=== PATIENT | male | born 1940 | race Caucasian/White ===

== ENCOUNTER 2019-02-17 16:02 | Inpatient (IN) ==
[2019-02-17] MEDS ORDERED: MAGNESIUM HYDROXIDE SUSP 30 ML UDCUP PO PRN (16:15)
[2019-02-17] MEDS ORDERED: GLUCAGON 1 MG VIAL IM PRN (16:15)
[2019-02-17] MEDS ORDERED: DEXTROSE 50% 25 GM/50 ML VIAL IV PRN (16:15)
[2019-02-17] MEDS ORDERED: ACETAMINOPHEN 325 MG TABLET PO PRN (16:15)
[2019-02-17] MEDS ORDERED: BISACODYL 5 MG TABLET PO PRN (16:15)
[2019-02-17] MEDS ORDERED: ONDANSETRON 4 MG/2 ML VIAL IV PRN (16:15)
[2019-02-17] MEDS: INSULIN REGULAR 100 UNIT/ML SUBCUT SCH ×2 (18:43→20:22)
[2019-02-17] MEDS: methylPREDNISolone SOD SUC 40 MG/1 ML VIAL IV SCH (19:20)
[2019-02-17] MEDS: SODIUM CHLORIDE 0.9% 1,000 ML IV SCH (19:22)
[2019-02-17 19:51] LABS: Basophils # 0.1 10*3/uL (0.0-0.2); Basophils % 0.9 % (0.0-0.8); Eosinophils # 0.4 10*3/uL (0.0-0.87); Eosinophils % 3.8 % (0.00-10.9); Hematocrit 40.4 VOL% (42.0-52.0); Hemoglobin 11.3 GM/DL (14.0-18.0); Immature Granulocytes % 0.4 %; Immature Granulocytes Absolute 0.04 #; Lymphocytes # 1.1 10*3/uL (1.4-4.0); Mean Corpuscular Volume 83.5 FL (87-102); Mean Platelet Volume 8.8 FL (9.6-12.0); Monocytes % 7.3 % (1.7-12.7); Neutrophils % 76.6 % (38.7-73.9); Platelet Count 385 T/CUMM (130-400); Red Blood Count 4.84 MC/CUMM (3.8-5.5); Red Cell Distribution Width 14.9 % (9.3-17.3); White Blood Count 10.2 T/CUMM (4-12)
[2019-02-17 19:52] LABS: Alanine Aminotransferase < 9 U/L (16-61); Albumin 3.3 G/DL (3.4-5.0); Alkaline Phosphatase 79 U/L (45-117); Aspartate Amino Transferase 13 U/L (0-37); Blood Urea Nitrogen 17 MG/DL (7-18); Calcium 8.3 MG/DL (8.5-10.1); Glucose 127 MG/DL (74-106); Osmolality,Calculated 280.5 MOS/KG (273-304); Total Protein 6.7 G/DL (6.4-8.3)
[2019-02-17 19:56] LABS: Anisocytosis 1+; Elliptocytes Few
[2019-02-17 19:57] LABS: Platelet Estimate Adequate; Polychromasia Few
[2019-02-17] MEDS: cefTRIAXone 500 MG in SYRINGE 1 EACH IV SCH (20:00)
[2019-02-17] MEDS: GABAPENTIN 300 MG CAPSULE PO SCH (20:22)
[2019-02-17] MEDS: DOCUSATE SODIUM 100 MG CAPSULE PO SCH (20:22)
[2019-02-17] MEDS: LIDOCAINE 5% PATCH TRANSDERM SCH (20:23)
[2019-02-17] MEDS: ALBUTEROL/IPRATROPIUM 3 ML NEB RESP TX SCH (20:26)
[2019-02-17] MEDS: BUDESONIDE 0.25 MG/2 ML NEB RESP TX SCH (20:26)
[2019-02-17] MEDS: TEMAZEPAM 7.5 MG CAPSULE PO SCH (20:38)
[2019-02-17] MEDS: ENOXAPARIN 40 MG/0.4 ML SYRINGE SUBCUT SCH (21:02)
[2019-02-17] MEDS ORDERED: DOCUSATE SODIUM 100 MG CAPSULE PO PRN (22:23)
[2019-02-17] MEDS ORDERED: KETOROLAC 15 MG/1 ML VIAL IV ONE (22:48)
[2019-02-18] MEDS: ALBUTEROL/IPRATROPIUM 3 ML NEB RESP TX SCH ×4 (01:22→19:05)
[2019-02-18 03:12] LABS: Apearance,Urine CLEAR (Clear); Bilirubin,Urine Negative (Negative); Blood, Urine Negative (Negative); Glucose,Urine (UA) 50 mg/dL (Negative); Hyaline Casts,Urine 3 /LPF (0-3); Ketones,Urine Negative (Negative); Mucus,Urine Few /LPF (Occasional); Nitrite,Urine Negative (Negative); Protein,Urine 30 MG/DL; RBC,Urine 4 /HPF (0-4); Squamous Epithelial Cell,Urine Occasional /HPF (0-10); Transitional Epi Cells,Urine Occasional /HPF (<1); Urine Color Yellow (Yellow); Urine Specific Gravity 1.023 (1.001-1.035); Urine Urobilinogen < 2.0 EU/DL (0.2-1.0); WBC,Urine 3 /HPF (0-6)
[2019-02-18 05:32] LABS: Calcium 8.1 MG/DL (8.5-10.1); Osmolality,Calculated 284.4 MOS/KG (273-304)
[2019-02-18] MEDS: methylPREDNISolone SOD SUC 40 MG/1 ML VIAL IV SCH ×2 (05:45→17:37)
[2019-02-18] MEDS: traMADol 50 MG TABLET PO PRN ×2 (05:45→22:23)
[2019-02-18 05:48] LABS: Basophils # 0.1 10*3/uL (0.0-0.2); Basophils % 0.6 % (0.0-0.8); Eosinophils % 0.2 % (0.00-10.9); Hematocrit 34.7 VOL% (42.0-52.0); Immature Granulocytes % 0.4 %; Immature Granulocytes Absolute 0.04 #; Lymphocytes # 0.6 10*3/uL (1.4-4.0); Lymphocytes % 6.6 % (21.2-54.2); Mean Corpuscular HGB Conc 28.8 GM/DL (32-36); Mean Corpuscular Volume 82.2 FL (87-102); Mean Platelet Volume 9.7 FL (9.6-12.0); Monocytes % 4.8 % (1.7-12.7); Neutrophils % 87.4 % (38.7-73.9); Platelet Count 318 T/CUMM (130-400); Red Blood Count 4.22 MC/CUMM (3.8-5.5); White Blood Count 9.4 T/CUMM (4-12)
[2019-02-18 05:53] LABS: Platelet Estimate Normal; Polychromasia Slight
[2019-02-18] MEDS: BUDESONIDE 0.25 MG/2 ML NEB RESP TX SCH ×2 (07:42→19:05)
[2019-02-18] MEDS ORDERED: predniSONE 10 MG TABLET PO SCH (09:00)
[2019-02-18] MEDS: INSULIN REGULAR 100 UNIT/ML SUBCUT SCH ×4 (10:29→22:23)
[2019-02-18] MEDS: ALLOPURINOL 300 MG TABLET PO SCH (10:30)
[2019-02-18] MEDS: CARBIDOPA/LEVODOPA 25-100 MG TABLET PO SCH ×3 (10:30→21:21)
[2019-02-18] MEDS: FUROSEMIDE 20 MG TABLET PO SCH (10:30)
[2019-02-18] MEDS: DOCUSATE SODIUM 100 MG CAPSULE PO SCH ×2 (10:30→21:21)
[2019-02-18] MEDS: metFORMIN 500 MG TABLET PO SCH ×2 (10:30→16:34)
[2019-02-18] MEDS: CETIRIZINE 10 MG TABLET PO SCH (10:31)
[2019-02-18] MEDS: PANTOPRAZOLE 40 MG TABLET PO SCH (10:31)
[2019-02-18] MEDS: amLODIPine 5 MG TABLET PO SCH (10:31)
[2019-02-18] MEDS: ROFLUMILAST 500 MCG TABLET PO SCH (10:31)
[2019-02-18] MEDS: MONTELUKAST 10 MG TABLET PO SCH (10:31)
[2019-02-18] MEDS: ASPIRIN EC 81 MG TABLET PO SCH (10:31)
[2019-02-18] MEDS: LIDOCAINE 5% PATCH TRANSDERM SCH (11:09)
[2019-02-18] MEDS: ACLIDINIUM INH SCH ×2 (16:35→22:22)
[2019-02-18] MEDS: cefTRIAXone 500 MG in SYRINGE 1 EACH IV SCH (17:37)
[2019-02-18] MEDS: GABAPENTIN 300 MG CAPSULE PO SCH (21:21)
[2019-02-18] MEDS: ROSUVASTATIN 10 MG TABLET PO SCH (21:21)
[2019-02-18] MEDS: ENOXAPARIN 40 MG/0.4 ML SYRINGE SUBCUT SCH (22:23)
[2019-02-18] MEDS: TEMAZEPAM 7.5 MG CAPSULE PO SCH (22:27)
[2019-02-18] MEDS: SODIUM CHLORIDE 0.9% 1,000 ML IV SCH ×2 (22:27→22:33)
[2019-02-19] MEDS: ALBUTEROL/IPRATROPIUM 3 ML NEB RESP TX SCH ×4 (00:43→19:47)
[2019-02-19] MEDS: methylPREDNISolone SOD SUC 40 MG/1 ML VIAL IV SCH ×2 (05:41→17:43)
[2019-02-19 06:03] LABS: Basophils % 0.3 % (0.0-0.8); Eosinophils % 0.1 % (0.00-10.9); Hematocrit 38.1 VOL% (42.0-52.0); Immature Granulocytes % 0.8 %; Immature Granulocytes Absolute 0.09 #; Lymphocytes # 0.7 10*3/uL (1.4-4.0); Lymphocytes % 6.2 % (21.2-54.2); Mean Corpuscular HGB Conc 28.1 GM/DL (32-36); Mean Corpuscular Volume 83.4 FL (87-102); Mean Platelet Volume 9.2 FL (9.6-12.0); Monocytes % 5.1 % (1.7-12.7); Neutrophils % 87.5 % (38.7-73.9); Platelet Count 379 T/CUMM (130-400); Red Blood Count 4.57 MC/CUMM (3.8-5.5); White Blood Count 11.2 T/CUMM (4-12)
[2019-02-19 06:15] LABS: Calcium 8.2 MG/DL (8.5-10.1); Osmolality,Calculated 287.3 MOS/KG (273-304)
[2019-02-19 06:28] LABS: Hemoglobin 10.7 GM/DL (14.0-18.0)
[2019-02-19 06:36] LABS: Burr Cells Slight; Hypochromasia Slight; Ovalocytes Slight; Platelet Estimate Adequate
[2019-02-19] MEDS: BUDESONIDE 0.25 MG/2 ML NEB RESP TX SCH ×2 (07:56→19:47)
[2019-02-19] MEDS: MONTELUKAST 10 MG TABLET PO SCH (09:20)
[2019-02-19] MEDS: INSULIN REGULAR 100 UNIT/ML SUBCUT SCH ×4 (09:20→21:10)
[2019-02-19] MEDS: DOCUSATE SODIUM 100 MG CAPSULE PO SCH ×2 (09:21→21:12)
[2019-02-19] MEDS: ROFLUMILAST 500 MCG TABLET PO SCH (09:21)
[2019-02-19] MEDS: metFORMIN 500 MG TABLET PO SCH ×2 (09:21→16:46)
[2019-02-19] MEDS: amLODIPine 5 MG TABLET PO SCH (09:21)
[2019-02-19] MEDS: CETIRIZINE 10 MG TABLET PO SCH (09:21)
[2019-02-19] MEDS: ALLOPURINOL 300 MG TABLET PO SCH (09:21)
[2019-02-19] MEDS: FUROSEMIDE 20 MG TABLET PO SCH (09:21)
[2019-02-19] MEDS: ASPIRIN EC 81 MG TABLET PO SCH (09:21)
[2019-02-19] MEDS: PANTOPRAZOLE 40 MG TABLET PO SCH (09:21)
[2019-02-19] MEDS: CARBIDOPA/LEVODOPA 25-100 MG TABLET PO SCH ×3 (09:21→21:12)
[2019-02-19] MEDS: LIDOCAINE 5% PATCH TRANSDERM SCH (09:22)
[2019-02-19] MEDS: ACLIDINIUM INH SCH ×2 (09:24→21:10)
[2019-02-19] MEDS: SODIUM CHLORIDE 0.9% 1,000 ML IV SCH (11:36)
[2019-02-19] MEDS: cefTRIAXone 500 MG in SYRINGE 1 EACH IV SCH (17:44)
[2019-02-19] MEDS: ENOXAPARIN 40 MG/0.4 ML SYRINGE SUBCUT SCH (21:12)
[2019-02-19] MEDS: ROSUVASTATIN 10 MG TABLET PO SCH (21:12)
[2019-02-19] MEDS: GABAPENTIN 300 MG CAPSULE PO SCH (21:12)
[2019-02-19] MEDS: TEMAZEPAM 7.5 MG CAPSULE PO SCH (23:44)
[2019-02-20] MEDS: ALBUTEROL/IPRATROPIUM 3 ML NEB RESP TX SCH ×4 (00:36→20:02)
[2019-02-20 04:57] LABS: Calcium 8.3 MG/DL (8.5-10.1); Osmolality,Calculated 284.4 MOS/KG (273-304)
[2019-02-20] MEDS: methylPREDNISolone SOD SUC 40 MG/1 ML VIAL IV SCH ×2 (06:09→17:38)
[2019-02-20] MEDS: BUDESONIDE 0.25 MG/2 ML NEB RESP TX SCH ×2 (08:13→20:03)
[2019-02-20] MEDS: INSULIN REGULAR 100 UNIT/ML SUBCUT SCH ×4 (09:00→20:45)
[2019-02-20] MEDS: ALLOPURINOL 300 MG TABLET PO SCH (09:43)
[2019-02-20] MEDS: CETIRIZINE 10 MG TABLET PO SCH (09:43)
[2019-02-20] MEDS: metFORMIN 500 MG TABLET PO SCH ×2 (09:44→16:59)
[2019-02-20] MEDS: MONTELUKAST 10 MG TABLET PO SCH (09:44)
[2019-02-20] MEDS: CARBIDOPA/LEVODOPA 25-100 MG TABLET PO SCH ×3 (09:44→20:39)
[2019-02-20] MEDS: LIDOCAINE 5% PATCH TRANSDERM SCH (09:44)
[2019-02-20] MEDS: DOCUSATE SODIUM 100 MG CAPSULE PO SCH ×2 (09:44→20:39)
[2019-02-20] MEDS: ASPIRIN EC 81 MG TABLET PO SCH (09:44)
[2019-02-20] MEDS: ROFLUMILAST 500 MCG TABLET PO SCH (09:44)
[2019-02-20] MEDS: FUROSEMIDE 20 MG TABLET PO SCH (09:44)
[2019-02-20] MEDS: PANTOPRAZOLE 40 MG TABLET PO SCH (09:44)
[2019-02-20] MEDS: ACLIDINIUM INH SCH ×2 (09:45→20:45)
[2019-02-20] MEDS: amLODIPine 5 MG TABLET PO SCH (09:50)
[2019-02-20] MEDS: SODIUM CHLORIDE 0.9% 1,000 ML IV SCH ×2 (13:29)
[2019-02-20] MEDS: cefTRIAXone 500 MG in SYRINGE 1 EACH IV SCH (17:01)
[2019-02-20] MEDS: ROSUVASTATIN 10 MG TABLET PO SCH (20:39)
[2019-02-20] MEDS: ENOXAPARIN 40 MG/0.4 ML SYRINGE SUBCUT SCH (20:39)
[2019-02-20] MEDS: GABAPENTIN 300 MG CAPSULE PO SCH (20:39)
[2019-02-20] MEDS: TEMAZEPAM 7.5 MG CAPSULE PO SCH (20:56)
[2019-02-21] MEDS: ALBUTEROL/IPRATROPIUM 3 ML NEB RESP TX SCH ×4 (00:56→19:52)
[2019-02-21] MEDS: SODIUM CHLORIDE 0.9% 1,000 ML IV SCH ×2 (02:49→16:23)
[2019-02-21] MEDS: methylPREDNISolone SOD SUC 40 MG/1 ML VIAL IV SCH ×2 (05:55→18:00)
[2019-02-21 05:59] LABS: Calcium 8.4 MG/DL (8.5-10.1); Osmolality,Calculated 283.4 MOS/KG (273-304)
[2019-02-21] MEDS: BUDESONIDE 0.25 MG/2 ML NEB RESP TX SCH ×2 (07:51→19:52)
[2019-02-21] MEDS: ROFLUMILAST 500 MCG TABLET PO SCH (09:07)
[2019-02-21] MEDS: ASPIRIN EC 81 MG TABLET PO SCH (09:07)
[2019-02-21] MEDS: FUROSEMIDE 20 MG TABLET PO SCH (09:07)
[2019-02-21] MEDS: MONTELUKAST 10 MG TABLET PO SCH (09:07)
[2019-02-21] MEDS: amLODIPine 5 MG TABLET PO SCH (09:07)
[2019-02-21] MEDS: CARBIDOPA/LEVODOPA 25-100 MG TABLET PO SCH ×3 (09:07→20:56)
[2019-02-21] MEDS: ALLOPURINOL 300 MG TABLET PO SCH (09:07)
[2019-02-21] MEDS: DOCUSATE SODIUM 100 MG CAPSULE PO SCH ×2 (09:07→20:56)
[2019-02-21] MEDS: metFORMIN 500 MG TABLET PO SCH ×2 (09:07→16:23)
[2019-02-21] MEDS: PANTOPRAZOLE 40 MG TABLET PO SCH (09:08)
[2019-02-21] MEDS: CETIRIZINE 10 MG TABLET PO SCH (09:08)
[2019-02-21] MEDS: LIDOCAINE 5% PATCH TRANSDERM SCH (09:08)
[2019-02-21] MEDS: INSULIN REGULAR 100 UNIT/ML SUBCUT SCH ×4 (09:09→21:00)
[2019-02-21] MEDS: ACLIDINIUM INH SCH ×2 (09:09→21:00)
[2019-02-21] MEDS: cefTRIAXone 500 MG in SYRINGE 1 EACH IV SCH (17:48)
[2019-02-21] MEDS: GABAPENTIN 300 MG CAPSULE PO SCH (20:55)
[2019-02-21] MEDS: ROSUVASTATIN 10 MG TABLET PO SCH (20:55)
[2019-02-21] MEDS: TEMAZEPAM 7.5 MG CAPSULE PO SCH (21:01)
[2019-02-21] MEDS: ENOXAPARIN 40 MG/0.4 ML SYRINGE SUBCUT SCH (21:01)
[2019-02-22] MEDS: ALBUTEROL/IPRATROPIUM 3 ML NEB RESP TX SCH ×4 (00:55→19:16)
[2019-02-22] MEDS: SODIUM CHLORIDE 0.9% 1,000 ML IV SCH ×2 (02:55→15:40)
[2019-02-22] MEDS: methylPREDNISolone SOD SUC 40 MG/1 ML VIAL IV SCH ×2 (05:41→20:10)
[2019-02-22] MEDS: INSULIN REGULAR 100 UNIT/ML SUBCUT SCH ×4 (07:30→22:08)
[2019-02-22] MEDS: BUDESONIDE 0.25 MG/2 ML NEB RESP TX SCH ×2 (07:32→09:41)
[2019-02-22] MEDS: CETIRIZINE 10 MG TABLET PO SCH (08:58)
[2019-02-22] MEDS: FUROSEMIDE 20 MG TABLET PO SCH (08:58)
[2019-02-22] MEDS: ALLOPURINOL 300 MG TABLET PO SCH (08:58)
[2019-02-22] MEDS: metFORMIN 500 MG TABLET PO SCH ×2 (08:58→17:04)
[2019-02-22] MEDS: ROFLUMILAST 500 MCG TABLET PO SCH (08:59)
[2019-02-22] MEDS: DOCUSATE SODIUM 100 MG CAPSULE PO SCH ×2 (08:59→22:07)
[2019-02-22] MEDS: MONTELUKAST 10 MG TABLET PO SCH (08:59)
[2019-02-22] MEDS: PANTOPRAZOLE 40 MG TABLET PO SCH (08:59)
[2019-02-22] MEDS: amLODIPine 5 MG TABLET PO SCH (08:59)
[2019-02-22] MEDS: CARBIDOPA/LEVODOPA 25-100 MG TABLET PO SCH ×3 (09:00→22:07)
[2019-02-22] MEDS: ASPIRIN EC 81 MG TABLET PO SCH (09:00)
[2019-02-22] MEDS: LIDOCAINE 5% PATCH TRANSDERM SCH (09:30)
[2019-02-22] MEDS: ACLIDINIUM INH SCH ×2 (09:41→22:11)
[2019-02-22] MEDS ORDERED: methylPREDNISolone ACETATE 80 MG/1 ML VIAL IM ONE (17:30)
[2019-02-22] MEDS: cefTRIAXone 500 MG in SYRINGE 1 EACH IV SCH ×2 (22:03→22:50)
[2019-02-22] MEDS: GABAPENTIN 300 MG CAPSULE PO SCH (22:07)
[2019-02-22] MEDS: TEMAZEPAM 7.5 MG CAPSULE PO SCH (22:07)
[2019-02-22] MEDS: ROSUVASTATIN 10 MG TABLET PO SCH (22:07)
[2019-02-22] MEDS: ENOXAPARIN 40 MG/0.4 ML SYRINGE SUBCUT SCH ×2 (22:08→22:13)
[2019-02-23] MEDS: ALBUTEROL/IPRATROPIUM 3 ML NEB RESP TX SCH ×4 (00:34→19:57)
[2019-02-23] MEDS ORDERED: methylPREDNISolone SOD SUC 40 MG/1 ML VIAL IV SCH (04:00)
[2019-02-23] MEDS: methylPREDNISolone SOD SUC 40 MG/1 ML VIAL IV SCH (04:16)
[2019-02-23 05:50] LABS: Alanine Aminotransferase < 6 U/L (16-61); Alkaline Phosphatase 79 U/L (45-117); Aspartate Amino Transferase 11 U/L (0-37); Blood Urea Nitrogen 34 MG/DL (7-18); Glucose 156 MG/DL (74-106); Osmolality,Calculated 283.8 MOS/KG (273-304)
[2019-02-23 05:56] LABS: Basophils # 0.1 10*3/uL (0.0-0.2); Basophils % 0.5 % (0.0-0.8); Eosinophils # 0.1 10*3/uL (0.0-0.87); Eosinophils % 0.7 % (0.00-10.9); Hematocrit 38.4 VOL% (42.0-52.0); Hemoglobin 11.2 GM/DL (14.0-18.0); Immature Granulocytes % 1.6 %; Immature Granulocytes Absolute 0.21 #; Lymphocytes # 0.5 10*3/uL (1.4-4.0); Lymphocytes % 3.7 % (21.2-54.2); Mean Corpuscular HGB Conc 29.2 GM/DL (32-36); Mean Corpuscular Volume 81.7 FL (87-102); Mean Platelet Volume 9.3 FL (9.6-12.0); Monocytes % 2.3 % (1.7-12.7); Neutrophils % 91.2 % (38.7-73.9); Platelet Count 370 T/CUMM (130-400); Red Cell Distribution Width 15.7 % (9.3-17.3); White Blood Count 12.8 T/CUMM (4-12)
[2019-02-23 06:20] LABS: Anisocytosis Slight; Eosinophils 2 % (0-10); Lymphocytes 4 % (20-55); Microcytosis 1+; Segmented Neutrophils 92 % (50-85); Total Cells Counted 100
[2019-02-23 06:21] LABS: Ovalocytes Slight; Platelet Estimate Normal
[2019-02-23] MEDS: BUDESONIDE 0.25 MG/2 ML NEB RESP TX SCH ×2 (07:22→19:57)
[2019-02-23] MEDS: SODIUM CHLORIDE 0.9% 1,000 ML IV SCH (07:29)
[2019-02-23] MEDS ORDERED: GLIMEPIRIDE 2 MG TABLET PO SCH (08:00)
[2019-02-23] MEDS: MONTELUKAST 10 MG TABLET PO SCH (09:44)
[2019-02-23] MEDS: DOCUSATE SODIUM 100 MG CAPSULE PO SCH ×2 (09:44→21:44)
[2019-02-23] MEDS: FUROSEMIDE 20 MG TABLET PO SCH (09:44)
[2019-02-23] MEDS: CETIRIZINE 10 MG TABLET PO SCH (09:45)
[2019-02-23] MEDS: ACLIDINIUM INH SCH ×2 (09:45→21:48)
[2019-02-23] MEDS: CARBIDOPA/LEVODOPA 25-100 MG TABLET PO SCH ×3 (09:45→21:44)
[2019-02-23] MEDS: ASPIRIN EC 81 MG TABLET PO SCH (09:45)
[2019-02-23] MEDS: amLODIPine 5 MG TABLET PO SCH (09:45)
[2019-02-23] MEDS: ROFLUMILAST 500 MCG TABLET PO SCH (09:45)
[2019-02-23] MEDS: ALLOPURINOL 300 MG TABLET PO SCH (09:45)
[2019-02-23] MEDS: PANTOPRAZOLE 40 MG TABLET PO SCH (09:45)
[2019-02-23] MEDS: LIDOCAINE 5% PATCH TRANSDERM SCH (09:49)
[2019-02-23] MEDS: INSULIN REGULAR 100 UNIT/ML SUBCUT SCH ×4 (09:49→21:46)
[2019-02-23] MEDS: GABAPENTIN 300 MG CAPSULE PO SCH ×2 (15:11→21:44)
[2019-02-23] MEDS: cefTRIAXone 500 MG in SYRINGE 1 EACH IV SCH (18:34)
[2019-02-23] MEDS ORDERED: ACETAMINOPHEN 325 MG TABLET PO SCH (21:00)
[2019-02-23] MEDS ORDERED: diphenhydrAMINE CAP 25 MG CAPSULE PO SCH (21:00)
[2019-02-23] MEDS: ROSUVASTATIN 10 MG TABLET PO SCH (21:44)
[2019-02-23] MEDS: ENOXAPARIN 40 MG/0.4 ML SYRINGE SUBCUT SCH (21:48)
[2019-02-23] MEDS: TEMAZEPAM 7.5 MG CAPSULE PO SCH (22:04)
[2019-02-23] MEDS ORDERED: CARBIDOPA/LEVODOPA 25-100 MG TABLET PO SCH (22:35)
[2019-02-24] MEDS: ALBUTEROL/IPRATROPIUM 3 ML NEB RESP TX SCH ×3 (00:32→13:18)
[2019-02-24 05:49] LABS: Calcium 8.4 MG/DL (8.5-10.1); Osmolality,Calculated 285.7 MOS/KG (273-304)
[2019-02-24 06:15] LABS: Basophils # 0.1 10*3/uL (0.0-0.2); Basophils % 0.4 % (0.0-0.8); Eosinophils # 0.2 10*3/uL (0.0-0.87); Eosinophils % 1.9 % (0.00-10.9); Hematocrit 38.1 VOL% (42.0-52.0); Immature Granulocytes % 1.5 %; Immature Granulocytes Absolute 0.19 #; Lymphocytes # 1.2 10*3/uL (1.4-4.0); Lymphocytes % 9.1 % (21.2-54.2); Mean Corpuscular HGB Conc 28.9 GM/DL (32-36); Mean Corpuscular Volume 82.6 FL (87-102); Mean Platelet Volume 9.5 FL (9.6-12.0); Monocytes % 5.9 % (1.7-12.7); Neutrophils % 81.2 % (38.7-73.9); Platelet Count 361 T/CUMM (130-400); Red Blood Count 4.61 MC/CUMM (3.8-5.5); Red Cell Distribution Width 15.9 % (9.3-17.3); White Blood Count 12.9 T/CUMM (4-12)
[2019-02-24 06:27] LABS: Anisocytosis 1+; Ovalocytes 1+; Platelet Estimate Adequate
[2019-02-24] MEDS: SODIUM CHLORIDE 0.9% 1,000 ML IV SCH ×2 (06:31→10:07)
[2019-02-24] MEDS: BUDESONIDE 0.25 MG/2 ML NEB RESP TX SCH (07:42)
[2019-02-24] MEDS ORDERED: CEFUROXIME 250 MG TABLET PO SCH (09:00)
[2019-02-24] MEDS: ROFLUMILAST 500 MCG TABLET PO SCH (09:15)
[2019-02-24] MEDS: CETIRIZINE 10 MG TABLET PO SCH (09:15)
[2019-02-24] MEDS: ASPIRIN EC 81 MG TABLET PO SCH (09:15)
[2019-02-24] MEDS: amLODIPine 5 MG TABLET PO SCH (09:15)
[2019-02-24] MEDS: MONTELUKAST 10 MG TABLET PO SCH (09:15)
[2019-02-24] MEDS: ALLOPURINOL 300 MG TABLET PO SCH (09:15)
[2019-02-24] MEDS: GABAPENTIN 300 MG CAPSULE PO SCH ×2 (09:15→09:21)
[2019-02-24] MEDS: LIDOCAINE 5% PATCH TRANSDERM SCH (09:16)
[2019-02-24] MEDS: PANTOPRAZOLE 40 MG TABLET PO SCH (09:16)
[2019-02-24] MEDS: DOCUSATE SODIUM 100 MG CAPSULE PO SCH (09:16)
[2019-02-24] MEDS: INSULIN REGULAR 100 UNIT/ML SUBCUT SCH ×2 (09:16→12:44)
[2019-02-24] MEDS: FUROSEMIDE 20 MG TABLET PO SCH (09:16)
[2019-02-24] MEDS: ACLIDINIUM INH SCH (09:17)
[2019-02-24] MEDS ORDERED: predniSONE 20 MG TABLET PO SCH (09:30)
[2019-02-24 15:45] VITALS: BP 108/64
== END 2019-02-24 16:00 | disposition swing bed (61) | DRG 552 ==
LOC: N.5E 16:58
PROVIDERS: ADMIT Internal Medicine; ATTEND Internal Medicine

== ENCOUNTER 2019-10-28 11:03 | Inpatient (IN) ==
[2019-10-28] MEDS ORDERED: traMADol 50 MG TABLET PO PRN (11:34)
[2019-10-28] MEDS ORDERED: MAGNESIUM HYDROXIDE SUSP 30 ML UDCUP PO PRN (11:34)
[2019-10-28] MEDS ORDERED: ACETAMINOPHEN 325 MG TABLET PO PRN (11:34)
[2019-10-28] MEDS ORDERED: ONDANSETRON 4 MG/2 ML VIAL IV PRN (11:34)
[2019-10-28] MEDS ORDERED: GLUCAGON 1 MG VIAL IM PRN (11:34)
[2019-10-28] MEDS ORDERED: DEXTROSE 10% 25 GM/250 ML BAG IV PRN (11:34)
[2019-10-28] MEDS ORDERED: SKIN HEALING OINT (AQUAPHOR) 50 GM TUBE TOP SCH (12:00)
[2019-10-28] MEDS ORDERED: AZITHROMYCIN INJ 250 MG in SODIUM CHLORIDE 0.9% 250 ML IV SCH (12:30)
[2019-10-28] MEDS: BUDESONIDE 0.25 MG/2 ML NEB RESP TX SCH ×2 (13:14→19:20)
[2019-10-28] MEDS: ALBUTEROL/IPRATROPIUM 3 ML NEB RESP TX SCH ×2 (13:14→19:20)
[2019-10-28 13:18] LABS: Basophils # 0.1 10*3/uL (0.0-0.2); Basophils % 0.4 % (0.0-0.8); Eosinophils # 0.1 10*3/uL (0.0-0.87); Eosinophils % 0.3 % (0.00-10.9); Hematocrit 44.5 VOL% (42.0-52.0); Hemoglobin 12.8 GM/DL (14.0-18.0); Immature Granulocytes % 0.5 %; Immature Granulocytes Absolute 0.09 #; Lymphocytes # 0.4 10*3/uL (1.4-4.0); Lymphocytes % 2.5 % (21.2-54.2); Mean Corpuscular HGB Conc 28.8 GM/DL (32-36); Mean Platelet Volume 9.6 FL (9.6-12.0); Monocytes % 11.4 % (1.7-12.7); Neutrophils % 84.9 % (38.7-73.9); Platelet Count 432 T/CUMM (130-400); Red Blood Count 5.43 MC/CUMM (3.8-5.5); Red Cell Distribution Width 15.6 % (9.3-17.3); White Blood Count 17.2 T/CUMM (4-12)
[2019-10-28 13:32] LABS: Alanine Aminotransferase < 9 U/L (16-61); Albumin 2.7 G/DL (3.4-5.0); Alkaline Phosphatase 111 U/L (45-117); Aspartate Amino Transferase 30 U/L (0-37); Blood Urea Nitrogen 24 MG/DL (7-18); Estimated Glom Filtration Rate 37 ML/MIN; Glucose 158 MG/DL (74-106); Osmolality,Calculated 279.8 MOS/KG (273-304); Total Protein 7.3 G/DL (6.4-8.3)
[2019-10-28 13:43] LABS: Eosinophils 2 % (0-10); Lymphocytes 2 % (20-55); Platelet Estimate Adequate; Segmented Neutrophils 80 % (50-85); Total Cells Counted 100
[2019-10-28] MEDS: FUROSEMIDE 40 MG/4 ML VIAL IV SCH (14:13)
[2019-10-28] MEDS: cefTRIAXone 500 MG in SYRINGE 1 EACH IV SCH (14:13)
[2019-10-28] MEDS: ENOXAPARIN 40 MG/0.4 ML SYRINGE SUBCUT SCH (14:14)
[2019-10-28] MEDS: methylPREDNISolone SOD SUC 40 MG/1 ML VIAL IV SCH ×2 (14:17→22:10)
[2019-10-28] MEDS: SODIUM CHLORIDE 0.9% 1,000 ML IV SCH (14:19)
[2019-10-28] MEDS: AZITHROMYCIN INJ 250 MG in SODIUM CHLORIDE 0.9% 150 ML IV SCH (14:19)
[2019-10-28] MEDS: INSULIN REGULAR 100 UNIT/ML SUBCUT SCH ×2 (17:42→22:10)
[2019-10-28] MEDS: METOPROLOL SUCCINATE XL 25 MG TABLET PO SCH ×2 (17:42→22:08)
[2019-10-28] MEDS ORDERED: BISACODYL 10 MG SUPP RECTAL PRN (17:51)
[2019-10-28] MEDS ORDERED: DOCUSATE SODIUM 100 MG CAPSULE PO PRN (17:51)
[2019-10-28] MEDS ORDERED: BISACODYL 5 MG TABLET PO PRN (17:51)
[2019-10-28 17:54] LABS: ABG HCO3 21.8 MMOL/L (20-26); ABG Oxygen Saturation 92.8 % (95-100); ABG PCO2 43.1 MM HG (35-48); ABG PH 7.333 (7.35-7.45); ABG TCO2 20.3 MMOL/L (23-27)
[2019-10-28] MEDS ORDERED: POLYMYXIN/TRIMETHOPRIM OPH SOL 10 ML BOTTLE BOTH EYES SCH (21:00)
[2019-10-28] MEDS: BIMATOPROST 0.01% OPH SOLN 2.5 ML BOTTLE LEFT EYE SCH (22:08)
[2019-10-28] MEDS: BRIMONIDINE 0.1% OPH SOLN 5 ML BOTTLE LEFT EYE SCH (22:08)
[2019-10-28] MEDS: CARBIDOPA/LEVODOPA 25-250 MG TABLET PO SCH (22:09)
[2019-10-28] MEDS: ROSUVASTATIN 10 MG TABLET PO SCH (22:09)
[2019-10-28] MEDS: GABAPENTIN 300 MG CAPSULE PO SCH (22:09)
[2019-10-28] MEDS: DOCUSATE SODIUM 100 MG CAPSULE PO SCH (22:38)
[2019-10-28] MEDS: BACITRACIN OPH OINT 3.5 GM TUBE BOTH EYES SCH (23:10)
[2019-10-29] MEDS: ALBUTEROL/IPRATROPIUM 3 ML NEB RESP TX SCH ×4 (01:25→20:41)
[2019-10-29] MEDS: methylPREDNISolone SOD SUC 40 MG/1 ML VIAL IV SCH ×3 (03:33→21:28)
[2019-10-29] MEDS: SODIUM CHLORIDE 0.9% 1,000 ML IV SCH ×2 (04:14→17:12)
[2019-10-29 05:23] LABS: Calcium 8.5 MG/DL (8.5-10.1); Osmolality,Calculated 291.4 MOS/KG (273-304)
[2019-10-29] MEDS: BUDESONIDE 0.25 MG/2 ML NEB RESP TX SCH ×2 (07:22→20:41)
[2019-10-29] MEDS: INSULIN REGULAR 100 UNIT/ML SUBCUT SCH ×4 (09:20→22:54)
[2019-10-29] MEDS: ASPIRIN EC 81 MG TABLET PO SCH (09:21)
[2019-10-29] MEDS: CETIRIZINE 10 MG TABLET PO SCH (09:21)
[2019-10-29] MEDS: FUROSEMIDE 40 MG/4 ML VIAL IV SCH ×2 (09:21→10:22)
[2019-10-29] MEDS: CARBIDOPA/LEVODOPA 25-250 MG TABLET PO SCH ×2 (09:21→21:29)
[2019-10-29] MEDS: PANTOPRAZOLE 40 MG TABLET PO SCH (09:22)
[2019-10-29] MEDS: ROFLUMILAST 500 MCG TABLET PO SCH (09:22)
[2019-10-29] MEDS: BRIMONIDINE 0.1% OPH SOLN 5 ML BOTTLE LEFT EYE SCH ×2 (09:22→21:28)
[2019-10-29] MEDS: MONTELUKAST 10 MG TABLET PO SCH (09:22)
[2019-10-29] MEDS: DOCUSATE SODIUM 100 MG CAPSULE PO SCH ×2 (09:24→21:28)
[2019-10-29] MEDS: METOPROLOL SUCCINATE XL 25 MG TABLET PO SCH (09:31)
[2019-10-29 12:12] LABS: Apearance,Urine Slightly Hazy (Clear); Bilirubin,Urine Negative (Negative); Blood, Urine Negative (Negative); Glucose,Urine (UA) 50 mg/dL (Negative); Hyaline Casts,Urine 7 /LPF (0-3); Ketones,Urine 5 mg/dL (Negative); Mucus,Urine Occasional /LPF (Occasional); Nitrite,Urine Negative (Negative); Protein,Urine 30 MG/DL; Squamous Epithelial Cell,Urine Occasional /HPF (0-10); Urine Color Yellow (Yellow); Urine Specific Gravity 1.016 (1.001-1.035); Urine Urobilinogen < 2.0 EU/DL (0.2-1.0); WBC,Urine 6 /HPF (0-6)
[2019-10-29] MEDS: ENOXAPARIN 40 MG/0.4 ML SYRINGE SUBCUT SCH (12:26)
[2019-10-29] MEDS: cefTRIAXone 500 MG in SYRINGE 1 EACH IV SCH (12:26)
[2019-10-29] MEDS: AZITHROMYCIN INJ 250 MG in SODIUM CHLORIDE 0.9% 150 ML IV SCH (14:49)
[2019-10-29] MEDS: MOXIFLOXACIN 0.5% OPH SOLN 3 ML BOTTLE BOTH EYES SCH ×2 (17:12→21:29)
[2019-10-29] MEDS ORDERED: TUBERCULIN SKIN TEST 0.1 ML SYRINGE INTRADERM ONE (20:00)
[2019-10-29] MEDS: ROSUVASTATIN 10 MG TABLET PO SCH (21:28)
[2019-10-29] MEDS: BIMATOPROST 0.01% OPH SOLN 2.5 ML BOTTLE LEFT EYE SCH (21:29)
[2019-10-29] MEDS: BACITRACIN OPH OINT 3.5 GM TUBE BOTH EYES SCH (21:29)
[2019-10-29] MEDS: GABAPENTIN 300 MG CAPSULE PO SCH (21:29)
[2019-10-30] MEDS: ALBUTEROL/IPRATROPIUM 3 ML NEB RESP TX SCH ×4 (00:58→20:24)
[2019-10-30] MEDS: SODIUM CHLORIDE 0.9% 1,000 ML IV SCH ×2 (03:32→16:32)
[2019-10-30] MEDS: methylPREDNISolone SOD SUC 40 MG/1 ML VIAL IV SCH ×3 (05:01→22:42)
[2019-10-30 07:07] LABS: Basophils % 0.2 % (0.0-0.8); Hematocrit 38.6 VOL% (42.0-52.0); Hemoglobin 11.1 GM/DL (14.0-18.0); Immature Granulocytes % 1.9 %; Immature Granulocytes Absolute 0.31 #; Lymphocytes # 0.6 10*3/uL (1.4-4.0); Lymphocytes % 3.9 % (21.2-54.2); Mean Corpuscular HGB Conc 28.8 GM/DL (32-36); Mean Corpuscular Volume 83.2 FL (87-102); Mean Platelet Volume 9.8 FL (9.6-12.0); Monocytes % 3.3 % (1.7-12.7); NRBC # 0.02 10*3/uL; Neutrophils % 90.7 % (38.7-73.9); Platelet Count 442 T/CUMM (130-400); Red Blood Count 4.64 MC/CUMM (3.8-5.5); Red Cell Distribution Width 15.6 % (9.3-17.3); White Blood Count 16.2 T/CUMM (4-12)
[2019-10-30 07:14] LABS: Alanine Aminotransferase < 9 U/L (16-61); Albumin 2.2 G/DL (3.4-5.0); Alkaline Phosphatase 93 U/L (45-117); Aspartate Amino Transferase 40 U/L (0-37); Bilirubin,Total < 0.39 MG/DL (0.2-1.0); Blood Urea Nitrogen 46 MG/DL (7-18); Calcium 8.2 MG/DL (8.5-10.1); Estimated Glom Filtration Rate 37 ML/MIN; Glucose 219 MG/DL (74-106); Osmolality,Calculated 299.3 MOS/KG (273-304); Total Protein 6.2 G/DL (6.4-8.3)
[2019-10-30] MEDS: BUDESONIDE 0.25 MG/2 ML NEB RESP TX SCH ×2 (07:23→20:24)
[2019-10-30] MEDS: INSULIN REGULAR 100 UNIT/ML SUBCUT SCH ×4 (08:52→22:44)
[2019-10-30] MEDS: ROFLUMILAST 500 MCG TABLET PO SCH (08:53)
[2019-10-30] MEDS: DOCUSATE SODIUM 100 MG CAPSULE PO SCH ×2 (08:53→22:43)
[2019-10-30] MEDS: MONTELUKAST 10 MG TABLET PO SCH (08:53)
[2019-10-30] MEDS: ASPIRIN EC 81 MG TABLET PO SCH (08:53)
[2019-10-30] MEDS: CARBIDOPA/LEVODOPA 25-250 MG TABLET PO SCH ×2 (08:53→22:42)
[2019-10-30] MEDS: CETIRIZINE 10 MG TABLET PO SCH (08:53)
[2019-10-30] MEDS: METOPROLOL SUCCINATE XL 25 MG TABLET PO SCH (08:53)
[2019-10-30] MEDS: PANTOPRAZOLE 40 MG TABLET PO SCH (08:53)
[2019-10-30] MEDS: BRIMONIDINE 0.1% OPH SOLN 5 ML BOTTLE LEFT EYE SCH ×2 (08:55→22:43)
[2019-10-30] MEDS: MOXIFLOXACIN 0.5% OPH SOLN 3 ML BOTTLE BOTH EYES SCH ×4 (08:55→22:43)
[2019-10-30 10:31] LABS: Band Neutrophils 5 % (0-10); Lymphocytes 1 % (20-55); Metamyelocytes 2 %; Polychromasia Slight; Segmented Neutrophils 91 % (50-85); Total Cells Counted 100
[2019-10-30 10:32] LABS: Hypochromasia Slight; Microcytosis 3+; Ovalocytes Few; Platelet Estimate Increased; Spherocytes Few
[2019-10-30] MEDS: cefTRIAXone 1,000 MG in SYRINGE 1 EACH IV SCH (12:28)
[2019-10-30] MEDS: ENOXAPARIN 40 MG/0.4 ML SYRINGE SUBCUT SCH (12:28)
[2019-10-30] MEDS: Fluticasone Furoate-Vilanterol [Breo Ellipta] 1 inh INH SCH ×3 (14:36→22:41)
[2019-10-30] MEDS: AZITHROMYCIN INJ 250 MG in SODIUM CHLORIDE 0.9% 150 ML IV SCH (16:31)
[2019-10-30] MEDS ORDERED: guaiFENesin 200 MG/10 ML UDCUP PO PRN (22:12)
[2019-10-30] MEDS: Aclidinium Bromide [Tudorza Pressair] 400 MCG INH SCH (22:40)
[2019-10-30] MEDS: GABAPENTIN 300 MG CAPSULE PO SCH (22:42)
[2019-10-30] MEDS: BACITRACIN OPH OINT 3.5 GM TUBE BOTH EYES SCH (22:43)
[2019-10-30] MEDS: BIMATOPROST 0.01% OPH SOLN 2.5 ML BOTTLE LEFT EYE SCH (22:43)
[2019-10-30] MEDS: ROSUVASTATIN 10 MG TABLET PO SCH (22:43)
[2019-10-31] MEDS: ALBUTEROL/IPRATROPIUM 3 ML NEB RESP TX SCH ×4 (01:10→19:32)
[2019-10-31] MEDS: SODIUM CHLORIDE 0.9% 1,000 ML IV SCH ×2 (01:11→12:07)
[2019-10-31] MEDS: methylPREDNISolone SOD SUC 40 MG/1 ML VIAL IV SCH ×3 (05:08→21:39)
[2019-10-31 06:45] LABS: Basophils # 0.1 10*3/uL (0.0-0.2); Basophils % 0.3 % (0.0-0.8); Hematocrit 42.4 VOL% (42.0-52.0); Hemoglobin 11.9 GM/DL (14.0-18.0); Immature Granulocytes % 5.7 %; Immature Granulocytes Absolute 1.03 #; Lymphocytes # 0.7 10*3/uL (1.4-4.0); Lymphocytes % 3.6 % (21.2-54.2); Mean Corpuscular HGB Conc 28.1 GM/DL (32-36); Mean Corpuscular Volume 85.1 FL (87-102); Mean Platelet Volume 9.3 FL (9.6-12.0); Monocytes % 4.1 % (1.7-12.7); NRBC # 0.02 10*3/uL; Neutrophils % 86.3 % (38.7-73.9); Platelet Count 557 T/CUMM (130-400); Red Blood Count 4.98 MC/CUMM (3.8-5.5); Red Cell Distribution Width 15.9 % (9.3-17.3); White Blood Count 18.2 T/CUMM (4-12)
[2019-10-31] MEDS: BUDESONIDE 0.25 MG/2 ML NEB RESP TX SCH ×2 (08:43→19:32)
[2019-10-31] MEDS ORDERED: POLYETHYLENE GLYCOL POWDER 17 GM PACK PO PRN (08:43)
[2019-10-31] MEDS ORDERED: guaiFENesin 200 MG/10 ML UDCUP PO PRN (08:43)
[2019-10-31] MEDS: ROFLUMILAST 500 MCG TABLET PO SCH (08:47)
[2019-10-31] MEDS: MONTELUKAST 10 MG TABLET PO SCH (08:47)
[2019-10-31] MEDS: CETIRIZINE 10 MG TABLET PO SCH (08:47)
[2019-10-31] MEDS: CARBIDOPA/LEVODOPA 25-250 MG TABLET PO SCH ×2 (08:47→21:41)
[2019-10-31] MEDS: INSULIN REGULAR 100 UNIT/ML SUBCUT SCH ×4 (08:47→21:40)
[2019-10-31] MEDS: DOCUSATE SODIUM 100 MG CAPSULE PO SCH ×2 (08:47→21:40)
[2019-10-31] MEDS: ASPIRIN EC 81 MG TABLET PO SCH (08:47)
[2019-10-31] MEDS: PANTOPRAZOLE 40 MG TABLET PO SCH (08:47)
[2019-10-31] MEDS: MOXIFLOXACIN 0.5% OPH SOLN 3 ML BOTTLE BOTH EYES SCH ×4 (08:49→21:41)
[2019-10-31] MEDS: BRIMONIDINE 0.1% OPH SOLN 5 ML BOTTLE LEFT EYE SCH ×2 (08:49→21:40)
[2019-10-31] MEDS: METOPROLOL SUCCINATE XL 25 MG TABLET PO SCH (08:50)
[2019-10-31] MEDS: Aclidinium Bromide [Tudorza Pressair] 400 MCG INH SCH ×2 (08:50→21:40)
[2019-10-31 09:09] LABS: Calcium 8.3 MG/DL (8.5-10.1); Osmolality,Calculated 300.1 MOS/KG (273-304)
[2019-10-31 09:43] LABS: Band Neutrophils 9 % (0-10); Lymphocytes 10 % (20-55); Metamyelocytes 2 %; Myelocytes 4 %; Nucleated Red Blood Cells 1 (0-5); Segmented Neutrophils 69 % (50-85); Total Cells Counted 100
[2019-10-31 09:44] LABS: Platelet Estimate Increased
[2019-10-31 09:45] LABS: Anisocytosis Slight; Spherocytes Few
[2019-10-31] MEDS: Fluticasone Furoate-Vilanterol [Breo Ellipta] 1 inh INH SCH ×4 (11:20→21:40)
[2019-10-31] MEDS: ENOXAPARIN 40 MG/0.4 ML SYRINGE SUBCUT SCH (12:08)
[2019-10-31] MEDS: FLUTICASONE/SALMETEROL 250-50 DISKUS 14 DOSE INH SCH ×2 (12:08→21:40)
[2019-10-31] MEDS: cefTRIAXone 1,000 MG in SYRINGE 1 EACH IV SCH (12:09)
[2019-10-31] MEDS: AZITHROMYCIN INJ 250 MG in SODIUM CHLORIDE 0.9% 150 ML IV SCH (12:55)
[2019-10-31] MEDS: BIMATOPROST 0.01% OPH SOLN 2.5 ML BOTTLE LEFT EYE SCH (21:40)
[2019-10-31] MEDS: BACITRACIN OPH OINT 3.5 GM TUBE BOTH EYES SCH (21:40)
[2019-10-31] MEDS: GABAPENTIN 300 MG CAPSULE PO SCH (21:40)
[2019-10-31] MEDS: ROSUVASTATIN 10 MG TABLET PO SCH (21:40)
[2019-11-01] MEDS: BENZONATATE 100 MG CAPSULE PO SCH ×4 (00:40→22:29)
[2019-11-01] MEDS: ALBUTEROL/IPRATROPIUM 3 ML NEB RESP TX SCH ×4 (00:42→19:17)
[2019-11-01] MEDS: methylPREDNISolone SOD SUC 40 MG/1 ML VIAL IV SCH ×3 (04:27→22:25)
[2019-11-01 04:52] LABS: Basophils # 0.1 10*3/uL (0.0-0.2); Basophils % 0.4 % (0.0-0.8); Immature Granulocytes % 7.7 %; Immature Granulocytes Absolute 1.18 #; Lymphocytes # 0.7 10*3/uL (1.4-4.0); Lymphocytes % 4.6 % (21.2-54.2); Mean Corpuscular HGB Conc 27.6 GM/DL (32-36); Mean Platelet Volume 9.1 FL (9.6-12.0); Monocytes % 5.6 % (1.7-12.7); Neutrophils % 81.7 % (38.7-73.9); Platelet Count 502 T/CUMM (130-400); Red Blood Count 5.01 MC/CUMM (3.8-5.5); White Blood Count 15.3 T/CUMM (4-12)
[2019-11-01 05:06] LABS: Calcium 8.4 MG/DL (8.5-10.1); Osmolality,Calculated 311.1 MOS/KG (273-304)
[2019-11-01 05:29] LABS: Hematocrit 42.9 VOL% (42.0-52.0)
[2019-11-01 05:30] LABS: Hemoglobin 11.9 GM/DL (14.0-18.0)
[2019-11-01 05:32] LABS: Band Neutrophils 1 % (0-10); Hypochromasia 1+; Lymphocytes 8 % (20-55); Platelet Estimate Adequate; Segmented Neutrophils 87 % (50-85); Total Cells Counted 100
[2019-11-01] MEDS: BUDESONIDE 0.25 MG/2 ML NEB RESP TX SCH ×2 (07:26→19:17)
[2019-11-01] MEDS: DOCUSATE SODIUM 100 MG CAPSULE PO SCH ×2 (09:32→22:31)
[2019-11-01] MEDS: ROFLUMILAST 500 MCG TABLET PO SCH (09:32)
[2019-11-01] MEDS: MONTELUKAST 10 MG TABLET PO SCH (09:32)
[2019-11-01] MEDS: CETIRIZINE 10 MG TABLET PO SCH (09:33)
[2019-11-01] MEDS: INSULIN REGULAR 100 UNIT/ML SUBCUT SCH ×4 (09:33→22:39)
[2019-11-01] MEDS: CARBIDOPA/LEVODOPA 25-250 MG TABLET PO SCH ×2 (09:33→22:29)
[2019-11-01] MEDS: ASPIRIN EC 81 MG TABLET PO SCH (09:33)
[2019-11-01] MEDS: METOPROLOL SUCCINATE XL 25 MG TABLET PO SCH (09:33)
[2019-11-01] MEDS: PANTOPRAZOLE 40 MG TABLET PO SCH (09:33)
[2019-11-01] MEDS: FLUTICASONE/SALMETEROL 250-50 DISKUS 14 DOSE INH SCH ×2 (09:35→22:33)
[2019-11-01] MEDS: BRIMONIDINE 0.1% OPH SOLN 5 ML BOTTLE LEFT EYE SCH ×2 (09:35→22:36)
[2019-11-01] MEDS: Aclidinium Bromide [Tudorza Pressair] 400 MCG INH SCH ×2 (09:35→22:30)
[2019-11-01] MEDS: Fluticasone Furoate-Vilanterol [Breo Ellipta] 1 inh INH SCH ×4 (09:36→22:10)
[2019-11-01] MEDS: AZITHROMYCIN INJ 250 MG in SODIUM CHLORIDE 0.9% 150 ML IV SCH (09:36)
[2019-11-01] MEDS: cefTRIAXone 1,000 MG in SYRINGE 1 EACH IV SCH (09:36)
[2019-11-01] MEDS: MOXIFLOXACIN 0.5% OPH SOLN 3 ML BOTTLE BOTH EYES SCH ×4 (09:49→22:34)
[2019-11-01] MEDS: ENOXAPARIN 40 MG/0.4 ML SYRINGE SUBCUT SCH (12:12)
[2019-11-01] MEDS: GABAPENTIN 300 MG CAPSULE PO SCH (22:28)
[2019-11-01] MEDS: ROSUVASTATIN 10 MG TABLET PO SCH (22:29)
[2019-11-01] MEDS: BIMATOPROST 0.01% OPH SOLN 2.5 ML BOTTLE LEFT EYE SCH (22:37)
[2019-11-01] MEDS: BACITRACIN OPH OINT 3.5 GM TUBE BOTH EYES SCH (22:37)
[2019-11-02] MEDS: ALBUTEROL/IPRATROPIUM 3 ML NEB RESP TX SCH ×4 (00:32→20:13)
[2019-11-02] MEDS: SODIUM CHLORIDE 0.9% 1,000 ML IV SCH ×2 (01:00→02:30)
[2019-11-02 05:48] LABS: Alanine Aminotransferase < 9 U/L (16-61); Albumin 2.3 G/DL (3.4-5.0); Alkaline Phosphatase 80 U/L (45-117); Aspartate Amino Transferase 21 U/L (0-37); Blood Urea Nitrogen 39 MG/DL (7-18); Calcium 8.5 MG/DL (8.5-10.1); Estimated Glom Filtration Rate 40 ML/MIN; Glucose 202 MG/DL (74-106); Osmolality,Calculated 304.6 MOS/KG (273-304); Total Protein 5.7 G/DL (6.4-8.3)
[2019-11-02 05:56] LABS: Basophils # 0.1 10*3/uL (0.0-0.2); Basophils % 0.6 % (0.0-0.8); Hematocrit 41.6 VOL% (42.0-52.0); Hemoglobin 11.8 GM/DL (14.0-18.0); Immature Granulocytes % 7.1 %; Immature Granulocytes Absolute 1.03 #; Lymphocytes # 0.6 10*3/uL (1.4-4.0); Lymphocytes % 3.9 % (21.2-54.2); Mean Corpuscular HGB Conc 28.4 GM/DL (32-36); Mean Corpuscular Volume 84.7 FL (87-102); Mean Platelet Volume 9.2 FL (9.6-12.0); Monocytes % 3.9 % (1.7-12.7); Neutrophils % 84.5 % (38.7-73.9); Platelet Count 469 T/CUMM (130-400); Red Blood Count 4.91 MC/CUMM (3.8-5.5); Red Cell Distribution Width 16.1 % (9.3-17.3); White Blood Count 14.4 T/CUMM (4-12)
[2019-11-02] MEDS: methylPREDNISolone SOD SUC 40 MG/1 ML VIAL IV SCH ×3 (05:58→21:58)
[2019-11-02 06:03] LABS: Band Neutrophils 1 % (0-10); Hypochromasia 1+; Lymphocytes 4 % (20-55); Microcytosis 1+; Segmented Neutrophils 94 % (50-85); Total Cells Counted 100
[2019-11-02 06:04] LABS: Ovalocytes Slight
[2019-11-02] MEDS: BUDESONIDE 0.25 MG/2 ML NEB RESP TX SCH ×2 (07:09→20:13)
[2019-11-02] MEDS: AZITHROMYCIN INJ 250 MG in SODIUM CHLORIDE 0.9% 150 ML IV SCH (09:32)
[2019-11-02] MEDS: INSULIN REGULAR 100 UNIT/ML SUBCUT SCH ×4 (09:34→22:12)
[2019-11-02] MEDS: ENOXAPARIN 40 MG/0.4 ML SYRINGE SUBCUT SCH (09:34)
[2019-11-02] MEDS: DOCUSATE SODIUM 100 MG CAPSULE PO SCH ×2 (09:35→22:01)
[2019-11-02] MEDS: BENZONATATE 100 MG CAPSULE PO SCH ×3 (09:35→22:02)
[2019-11-02] MEDS: CETIRIZINE 10 MG TABLET PO SCH (09:35)
[2019-11-02] MEDS: ROFLUMILAST 500 MCG TABLET PO SCH (09:35)
[2019-11-02] MEDS: ASPIRIN EC 81 MG TABLET PO SCH (09:35)
[2019-11-02] MEDS: PANTOPRAZOLE 40 MG TABLET PO SCH (09:35)
[2019-11-02] MEDS: CARBIDOPA/LEVODOPA 25-250 MG TABLET PO SCH ×2 (09:35→22:01)
[2019-11-02] MEDS: MONTELUKAST 10 MG TABLET PO SCH (09:35)
[2019-11-02] MEDS: Fluticasone Furoate-Vilanterol [Breo Ellipta] 1 inh INH SCH ×4 (09:36→22:14)
[2019-11-02] MEDS: FLUTICASONE/SALMETEROL 250-50 DISKUS 14 DOSE INH SCH ×2 (09:36→22:05)
[2019-11-02] MEDS: Aclidinium Bromide [Tudorza Pressair] 400 MCG INH SCH ×2 (09:36→21:59)
[2019-11-02] MEDS: MOXIFLOXACIN 0.5% OPH SOLN 3 ML BOTTLE BOTH EYES SCH ×4 (09:37→22:10)
[2019-11-02] MEDS: METOPROLOL SUCCINATE XL 25 MG TABLET PO SCH (09:39)
[2019-11-02] MEDS: BRIMONIDINE 0.1% OPH SOLN 5 ML BOTTLE LEFT EYE SCH ×2 (09:45→22:07)
[2019-11-02] MEDS: GABAPENTIN 300 MG CAPSULE PO SCH (22:01)
[2019-11-02] MEDS: BIMATOPROST 0.01% OPH SOLN 2.5 ML BOTTLE LEFT EYE SCH (22:10)
[2019-11-02] MEDS: BACITRACIN OPH OINT 3.5 GM TUBE BOTH EYES SCH (22:11)
[2019-11-02] MEDS: ROSUVASTATIN 10 MG TABLET PO SCH (22:16)
[2019-11-03] MEDS: ALBUTEROL/IPRATROPIUM 3 ML NEB RESP TX SCH ×3 (01:30→12:43)
[2019-11-03] MEDS: methylPREDNISolone SOD SUC 40 MG/1 ML VIAL IV SCH (05:38)
[2019-11-03 06:17] LABS: Calcium 8.2 MG/DL (8.5-10.1); Osmolality,Calculated 297.1 MOS/KG (273-304)
[2019-11-03 06:23] LABS: Basophils # 0.1 10*3/uL (0.0-0.2); Basophils % 0.7 % (0.0-0.8); Hematocrit 42.7 VOL% (42.0-52.0); Hemoglobin 12.2 GM/DL (14.0-18.0); Immature Granulocytes % 7.2 %; Immature Granulocytes Absolute 1.19 #; Lymphocytes # 0.6 10*3/uL (1.4-4.0); Lymphocytes % 3.7 % (21.2-54.2); Mean Corpuscular HGB Conc 28.6 GM/DL (32-36); Mean Corpuscular Volume 84.4 FL (87-102); Mean Platelet Volume 9.2 FL (9.6-12.0); Monocytes % 3.3 % (1.7-12.7); Neutrophils % 85.1 % (38.7-73.9); Platelet Count 478 T/CUMM (130-400); Red Blood Count 5.06 MC/CUMM (3.8-5.5); Red Cell Distribution Width 16.2 % (9.3-17.3); White Blood Count 16.6 T/CUMM (4-12)
[2019-11-03 06:27] LABS: Hypochromasia 1+; Lymphocytes 8 % (20-55); Ovalocytes Slight; Platelet Estimate Adequate; Segmented Neutrophils 90 % (50-85); Total Cells Counted 100
[2019-11-03 06:28] LABS: Microcytosis 1+
[2019-11-03] MEDS: BUDESONIDE 0.25 MG/2 ML NEB RESP TX SCH (07:19)
[2019-11-03] MEDS: BENZONATATE 100 MG CAPSULE PO SCH ×2 (08:49→17:55)
[2019-11-03] MEDS: ENOXAPARIN 40 MG/0.4 ML SYRINGE SUBCUT SCH (08:50)
[2019-11-03] MEDS: INSULIN REGULAR 100 UNIT/ML SUBCUT SCH ×3 (08:50→16:09)
[2019-11-03] MEDS: PANTOPRAZOLE 40 MG TABLET PO SCH (08:50)
[2019-11-03] MEDS: MONTELUKAST 10 MG TABLET PO SCH (08:50)
[2019-11-03] MEDS: ROFLUMILAST 500 MCG TABLET PO SCH (08:50)
[2019-11-03] MEDS: CETIRIZINE 10 MG TABLET PO SCH (08:50)
[2019-11-03] MEDS: DOCUSATE SODIUM 100 MG CAPSULE PO SCH (08:50)
[2019-11-03] MEDS: Fluticasone Furoate-Vilanterol [Breo Ellipta] 1 inh INH SCH ×3 (08:51→17:55)
[2019-11-03] MEDS: MOXIFLOXACIN 0.5% OPH SOLN 3 ML BOTTLE BOTH EYES SCH ×3 (08:51→17:55)
[2019-11-03] MEDS: CARBIDOPA/LEVODOPA 25-250 MG TABLET PO SCH (08:51)
[2019-11-03] MEDS: METOPROLOL SUCCINATE XL 25 MG TABLET PO SCH (08:51)
[2019-11-03] MEDS: BRIMONIDINE 0.1% OPH SOLN 5 ML BOTTLE LEFT EYE SCH (08:52)
[2019-11-03] MEDS: FLUTICASONE/SALMETEROL 250-50 DISKUS 14 DOSE INH SCH (08:52)
[2019-11-03] MEDS: ASPIRIN EC 81 MG TABLET PO SCH (08:52)
[2019-11-03] MEDS: Aclidinium Bromide [Tudorza Pressair] 400 MCG INH SCH (08:52)
[2019-11-03 16:09] VITALS: BP 150/54
[2019-11-04] MEDS ORDERED: predniSONE 20 MG TABLET PO SCH (09:00)
== END 2019-11-03 17:57 | DRG 191 ==
LOC: N.2E 11:30
PROVIDERS: ADMIT Internal Medicine; ATTEND Internal Medicine